=== PATIENT | female | born 1945 | race Caucasian/White ===

== ENCOUNTER 2022-03-18 12:01 | Emergency (ER) | payer MEDICARE, OTHER ==
[~2022-03-18] VITALS: Ht 167.6 cm; Wt 78.9 kg
[2022-03-18] MEDS ORDERED: KETOROLAC TROMETHAMINE 15 MG INJ ONE (13:15)
[2022-03-18] MEDS ORDERED: KETOROLAC TROMETHAMINE 15 MG INJ IM ONE (13:15)
--- NOTE | 2022-03-18 13:16 | NUR ---
DR BUTT AT BEDSIDE FOR EVALUATION. MEDICATED FOR PAIN PER MD ORDER.
--- NOTE | 2022-03-18 14:09 | NUR ---
wrist splints applied to both wrists per MD order, instructions on how to apply and remove. pt verbalized understanding. Patient discharged to home in stable condition. Written and verbal after care instructions given. Patient verbalizes understanding of instructions. Stressed follow up or return to ER for worsening s/s.
== END 2022-03-18 13:40 | disposition home or self-care (01) ==
LOC: ER 12:01
DX: G56.03 Carpal tunnel syndrome, bilateral upper limbs (principal); E78.5 Hyperlipidemia, unspecified; E03.9 Hypothyroidism, unspecified; E11.9 Type 2 diabetes mellitus without complications; M77.9 Enthesopathy, unspecified
CPT/HCPCS: 99283; 29125; 96372; J1885; A4663